=== PATIENT | male | born 1970 | race Caucasian/White ===

== ENCOUNTER 2018-02-24 20:43 | Emergency (ER) | payer OTHER ==
[~2018-02-24] VITALS: Ht 177.8 cm; Wt 79.4 kg
[~2018-02-24 20:43] MED LIST: BACTRIM DS TAB1 EACH PO; NOHOMEMEDICATIONS; NORCO 5-325 TA1 EACH PO
[2018-02-24] MEDS ORDERED: ALLEGRA-D 12 H1 EAC1 (20:55)
[2018-02-24] MEDS ORDERED: BACTRIM DS TAB1 EACH PO (21:09)
[2018-02-24 21:29] VITALS: BP 124/89
== END 2018-02-24 21:29 | disposition home or self-care (01) ==
LOC: M.ERS 20:43
DX: L03.211 Cellulitis of face (principal); L25.5 Unspecified contact dermatitis due to plants, except food; F17.210 Nicotine dependence, cigarettes, uncomplicated; Z88.1 Allergy status to other antibiotic agents